=== PATIENT | female | born 1975 | race Caucasian/White ===

== ENCOUNTER → 2025-03-22 | Emergency (ER) | payer MEDICAID ==
[~2025-03-22] VITALS: Ht 162.6 cm; Wt 94.4 kg
[~2025-03-22] MED LIST: IBUP-1984 PO
[2025-03-22 13:54] VITALS: BP 125/87; PULSE 76; RESP 16; TEMP 98.3; O2SAT 95
== END | disposition left against medical advice (07) ==
LOC: ER 13:25
DX: S60.862A Insect bite (nonvenomous) of left wrist, initial encounter (principal); Z53.21 Procedure and treatment not carried out due to patient leaving prior to being seen by health care provider; W57.XXXA Bitten or stung by nonvenomous insect and other nonvenomous arthropods, initial encounter; Y93.89 Activity, other specified; Y92.89 Other specified places as the place of occurrence of the external cause; Y99.8 Other external cause status